=== PATIENT | female | born 1985 | race Caucasian/White ===

== ENCOUNTER 2017-10-31 08:43 | Outpatient (CLI) | payer OTHER ==
[2017-10-31] MEDS ORDERED: Gadobenate Dimeglumine 529 MG/1 ML (20ML VIAL) ONE (09:00)
--- NOTE | 2017-10-31 11:09 | MRI ---
MRI LEFT KNEE WITHOUT CONTRAST: HISTORY: Left ganglion, M67.462. COMPARISON: None. FINDINGS: The exam was performed not as internal derangement protocol but for a mass protocol. Medial meniscus: Intact. Lateral meniscus: Intact. The ACL and PCL are intact. The MCL and LCL are intact. Extensive mechanism: Quadriceps tendon and patellar tendon are intact. There is a ganglion pseudocyst in Hoffa's fat pad intralaterally measuring 2.6 x 2.1 x 3 cm (transverse x AP x CC). There is no significant internal e nhancement. CARTILAGE: Patellofemoral compartment: There is some low-grade cartilage revision of the patellar apex. Medial compartment: Intact. Lateral compartment: Intact. Muscles: Muscle signal and bulk is normal. IMPRESSION: Infrapatella Hoffa's fat pad ganglion cyst with size as above. POS: [facility]
== END 2017-10-31 08:44 | disposition home or self-care (01) ==
LOC: SCSMRI 08:43
PROVIDERS: ATTEND Orthopaedic Surgery
DX: M67.462 Ganglion, left knee (principal)
CPT/HCPCS: A9579

== ENCOUNTER 2017-12-03 09:21 | Outpatient (CLI) | payer OTHER ==
[2017-12-03 10:46] LABS: BHCG - Serum Negative (NEGATIVE); Pregs Control Background? CLEAR/WHITE (CLR/WHITE); Pregs Control Bar Appear? YES (CONTROL BAR)
== END 2017-12-03 09:22 | disposition home or self-care (01) ==
LOC: LABBT 09:21
PROVIDERS: ATTEND Orthopaedic Surgery
DX: Z01.812 Encounter for preprocedural laboratory examination (principal); M67.462 Ganglion, left knee
CPT/HCPCS: 84703

== ENCOUNTER 2017-12-04 06:37 | Day surgery (SDC) | payer OTHER ==
[2017-12-03 09:57] VITALS: BMI 23.1
--- NOTE | 2017-12-03 10:34 | HP ---
HISTORY OF PRESENT ILLNESS: The patient is a 32-year-old female with a 2-year history of enlarging p ainful mass over the anterolateral aspect of the left knee. There has been no injury. She has had p rogressive symptoms despite rest, restriction of activities and use of antiinflammatory medications. PAST MEDICAL HISTORY: The patient is otherwise in good health. CURRENT MEDICATIONS: control pills which she has stopped in anticipation of her surgery. She works as a hairdresser. ALLERGIES: She has no known allergies. FAMILY HISTORY/SOCIAL HISTORY/REVIEW OF SYSTEMS: Otherwise unremarkable. PHYSICAL EXAMINATION: GENERAL: Reveals a healthy female. HEENT: Unremarkable. NECK: Supple. CHEST: Clear. HEART: Regular rhythm. ABDOMEN: Soft, nontender. PELVIC/RECTAL/BREAST: Exams are deferred. EXTREMITIES: Pertinent findings of the left knee. There is a 5 x 4 cm firm cystic mass over the ant erolateral aspect of the knee on the anterolateral joint line. There is no effusion or erythema. Th ere is minimal warmth. There is some mild localized tenderness. There is full range of motion. The re is no instability. Neurovascular exam is intact. LABORATORY AND X-RAY FINDINGS: X-rays of the left knee are normal. MRI scan left knee reveals a mul tilobulated ganglion cyst apparently arising from the infrapatellar fat pad. No obvious internal savannah angement with the knee and no meniscal tears. IMPRESSION: Ganglion, left knee. PLAN: Surgical excision. The nature of the surgery, length of recovery, and potential complications such as infection, loss of motion, incomplete relief, recurrence, thromboembolic phenomena, neurovas cular injury and need for additional or repeat surgery have been discussed in detail.
[2017-12-04] MEDS ORDERED: CEFAZOLIN/Water 2 GM/20 ML SYRINGE ONE (07:03)
[2017-12-04] MEDS ORDERED: Midazolam HCl 2 mg/2 ml Vial ONE (08:09)
[2017-12-04] MEDS ORDERED: Fentanyl 100 MCG/2 ML VIAL ONE (08:52)
[2017-12-04] MEDS ORDERED: Bupivacaine HCl 0.5%/Epinephrine 1:200,000/PF 30 ml Vial ONE (09:45)
--- NOTE | 2017-12-04 12:04 | OP ---
DATE OF PROCEDURE: 12/04/2017 SURGEON: Maverick Melchor M.D. ANESTHESIA: General. PREOPERATIVE DIAGNOSIS: Large intraarticular ganglion, left knee. POSTOPERATIVE DIAGNOSIS: Large intraarticular ganglion, left knee. PROCEDURE: Arthrotomy, left knee with excision of large intraarticular ganglion. OPERATIVE FINDINGS: There was a large intraarticular ganglion apparently arising from the infrapatel lar fat pad which involved most of the fat pad, it was multilobulated. It was also intimately associ ated with the anterior horn of the lateral meniscus and specifically the meniscal tibial ligament, al though I could not detect an obvious tear and this did not appear to be a parameniscal cyst. In exci sing it, it did require detaching the anterior portion of the meniscal tibial ligament of the anterio r horn of the lateral meniscus and I did repair this after excision of the mass. The mass was sent t o pathology. There was no other apparent intra-articular abnormalities. NARRATIVE REPORT: After satisfactory anesthesia was induced in supine position, the patient was plac ed in a leg self and prepped and draped in routine manner. Left leg was elevated and exsanguinated with an Esmarch bandage, and tourniquet inflated to 250 mmHg. A 4 inch longitudinal incision was ma de over the palpable mass, carried down to subcutaneous tissues. Bleeding points were controlled wit h Bovie cautery. Lateral capsule was opened in line with the skin incision and using sharp and blunt dissection, the mass was identified and then excised in its entirety along with a portion, if not mo st of the fat pad. It was sent to pathology. The wound was thoroughly irrigated and the joint inspe cted and the above findings were noted. The anterior horn of the lateral meniscus was then repaired back to bone with interrupted #1 Ethibond sutures. This appeared to give good stable repair. The kimbrough bcutaneous tissues and the knee joint were then infiltrated with a total of 30 mL of 0.5% Marcaine wi th epinephrine. The lateral capsule and retinaculum was closed with interrupted #1 Vicryl, subcutane ous tissue closed with interrupted 2-0 Vicryl and the skin closed with running subcuticular 3-0 V-Loc and SurgiSeal skin adhesive. A sterile bulky compressive dressing was applied and the tourniquet de flated after 56 minutes. The foot promptly pinked up. The patient was awakened, taken to recovery r oom in stable condition. There were no apparent intraoperative complications. ESTIMATED BLOOD LOSS: Negligible. The patient will be discharged home in satisfactory condition. She was instructed on ice, elevation, use of crutches, 50% weightbearing. She was given written wound care instructions and prescription for Maybell 10 for pain, 60 tablets. She will be rechecked in my office in 1 week or sooner if there a re any problems prior to that time.
[2017-12-04] MEDS ORDERED: HYDROcodone/Acetaminophen 5/325 mg Tablet ONE (13:11)
[2017-12-04] MEDS ORDERED: Ketorolac Tromethamine 30 MG/ML VIAL ONE (13:37)
[2017-12-04] MEDS ORDERED: Lidocaine 1% PF 5 ML VIAL ONE (13:37)
[2017-12-04] MEDS ORDERED: PROPOFOL 200 MG/20 ML VIAL ONE (13:37)
[2017-12-04] MEDS ORDERED: Metoclopramide HCl 10 MG/2 ML VIAL ONE (13:37)
[2017-12-04] MEDS ORDERED: Ondansetron HCl/PF 4 MG/2 ML Vial ONE (13:37)
[2017-12-04] MEDS ORDERED: Dexamethasone 20 MG/5 ML VIAL ONE (13:37)
== END 2017-12-04 12:12 | disposition home or self-care (01) ==
LOC: SDC 06:37 → EEVIPCON 09:30 → SDC 12:12
PROVIDERS: ATTEND Orthopaedic Surgery
PROC: 0SBD0ZZ Excision of Left Knee Joint, Open Approach (ICD-10-PCS; principal; 2017-12-04)
DX: M67.462 Ganglion, left knee (principal); Z79.1 Long term (current) use of non-steroidal anti-inflammatories (NSAID)
CPT/HCPCS: 84703; 88304; G8978-GP-CL; G8979-GP-CL; G8980-GP-CL; J0131; J0670; J1100; J1885; J2001; J2250; J2405; J2704; J2765; J3010